=== PATIENT | female | born 1995 | race Caucasian/White ===

== ENCOUNTER 2016-12-14 21:06 | Emergency (ER) | payer MEDICAID ==
[~2016-12-14] VITALS: Ht 177.8 cm; Wt 66.4 kg
[2016-12-14 21:08] VITALS: BP 119/71
[2016-12-14 21:51] LABS: HCG UR LOT HCG7030192
[2016-12-14 22:12] LABS: HCG UR OBC PASS
== END 2016-12-14 23:00 | disposition home or self-care (01) ==
LOC: ED 22:43
DX: R31.9 Hematuria, unspecified (principal)
CPT/HCPCS: 81001; 81025; 99284

== ENCOUNTER 2017-01-19 11:51 | Emergency (ER) | payer MEDICAID ==
[~2017-01-19] VITALS: Ht 177.8 cm; Wt 69.0 kg
[2017-01-19 11:54] VITALS: BP 113/70
[2017-01-19] MEDS ORDERED: DIPHENHYDRAMINE 25 MG CAPSULE PO ONE (13:00)
[2017-01-19] MEDS ORDERED: DIPHENHYDRAMINE 25 MG CAPSULE ONE (14:04)
== END 2017-01-19 14:41 | disposition left against medical advice (07) ==
LOC: EDSEX 11:51 → ED 14:35
DX: T78.49XA Other allergy, initial encounter (principal); X58.XXXA Exposure to other specified factors, initial encounter
CPT/HCPCS: 99282; Q0163